=== PATIENT | male | born 1960 | race Caucasian/White ===

== ENCOUNTER 2016-08-30 12:27 | Emergency (ER) | payer OTHER ==
[2016-08-30 15:35] LABS: HEMOGLOBIN 14.3 gm/dl (14.0-17.5); RED BLOOD COUNT 4.99 M/UL (4.20-5.50); WHITE BLOOD COUNT 12.4 K/UL (4.5-11.0)
[2016-08-30 15:51] LABS: BUN/CREATININE RATIO 16 (0-10)
== END 2016-08-30 18:25 | disposition home or self-care (01) ==
LOC: ER1 12:27
PROVIDERS: Family Medicine
DX: R11.2 Nausea with vomiting, unspecified (principal); R19.7 Diarrhea, unspecified; R55 Syncope and collapse; F17.200 Nicotine dependence, unspecified, uncomplicated; Z88.0 Allergy status to penicillin
CPT/HCPCS: 36415; 80053; 82550; 82553; 83874; 84484; 85025; 93005; 96361; 96374; 99284; J2405